=== PATIENT | male | born 1975 | race Caucasian/White ===

== ENCOUNTER 2020-05-02 15:38 | Emergency (ER) | payer SELFPAY ==
[~2020-05-02] VITALS: Ht 170.2 cm; Wt 74.8 kg
[2020-05-02 15:40] VITALS: BP 125/74
--- NOTE | 2020-05-02 17:56 | NUR ---
PATIENT LEFT WITHOUT BEING SEEN BY KERLINE LARKIN. NO FURTHER CARE PROVIDED FOR PATIENT.
== END 2020-05-02 17:56 | disposition left against medical advice (07) ==
LOC: MED 15:38
DX: F10.20 Alcohol dependence, uncomplicated (principal); Z53.21 Procedure and treatment not carried out due to patient leaving prior to being seen by health care provider